=== PATIENT | female | born 1965 | race Caucasian/White ===

== ENCOUNTER 2019-12-07 05:24 | Emergency (ER) | payer BC, SELFPAY ==
[2019-12-07 05:28] VITALS: BP 159/83; PULSE 98; RESP 16; TEMP 35.9; O2SAT 99
--- NOTE | 2019-12-07 06:07 | ED.EPISTAXIS ---
HPI - Epistaxis General Chief complaint: Epistaxis Stated complaint: nose bleed Time Seen by Provider: 12/07/19 05:38 Source: patient Mode of arrival: ambulatory Limitations: no limitations History of Present Illness HPI Narrative: Patient is a 54-year-old female who presents to the emergency department with complaint of epistaxis. Patient states she had gotten up and brush her teeth and was sitting down when she began to notice blood pouring from her nose. Patient states initially she noticed blood from the left naris and then subsequently the right naris as well. Patient denies any trauma or injury. She denies any use of blood thinners. Patient had not noticed any nasal symptoms recently. complaint: epistaxis Location: bilateral nostril (Predominantly left) Onset (ago): minute(s) Duration: constant Related Data Allergies Allergy/AdvReac Type Severity Reaction Status Date / Time No Known Allergies Allergy Unverified 01/27/12 09:14 Review of Systems Review of Systems: All systems reviewed & are unremarkable except as noted in HPI and below PMFSH Past Medical History Medical History (Updated 12/07/19 @ 06:57 by Mily Templeton MD) Hyperlipidemia Surgical History Surgical History (Updated 12/07/19 @ 06:09 by Mily Templeton MD) History of bilateral breast reduction surgery Social History Social History (Updated 12/07/19 @ 06:10 by Mily Templeton MD) Smoking status: Never smoker Exam Const: General: cooperative, no acute distress and alert Nutritional Appearance: well nourished Orientation/consciousness: patient oriented x3 Limitations: no limitations HENMT: General nose exam: Epistaxis present Mouth: Yes lip normal and Yes moist mucous membranes Resp: Effort & Inspection: normal respiratory effort Auscultation: clear to auscultation bilaterally Cardio: Rate: regular rate Rhythm: regular rhythm GI: GI Palp: Yes Soft to palpation Auscultation: normal bowel sounds Skin: General skin exam: normal color and no rashes or lesions noted Neuro: General: patient oriented x3 Cognition (Neuro): normal cognition Speech: normal speech Extrem: General: normal to inspection, full ROM and no clubbing, cyanosis or edema Psych: Mental Status: mental status grossly normal Affect: normal affect Attitude: cooperative Course Course Emergency Course: Patient presents with spontaneous epistaxis. Patient nose packed with rapid Rhino with achievement of control of epistaxis. Patient will be given referral to ENT for follow-up care. Advised to return to the ED if she has recurrent heavy bleeding. Patient counseled she may use slightly while rapid Rhino is in place. Vital Signs Vital signs: Vital Signs Temperature 96.6 F L 12/07/19 05:28 Pulse Rate 98 12/07/19 05:28 Respiratory Rate 16 12/07/19 05:28 Blood Pressure 159/83 H 12/07/19 05:28 Pulse Oximetry 99 12/07/19 05:28 Temperature 96.6 F L 12/07/19 05:28 Pulse Rate 98 12/07/19 05:28 Respiratory Rate 16 12/07/19 05:28 Blood Pressure 159/83 H 12/07/19 05:28 Pulse Oximetry 99 12/07/19 05:28 Procedures Epistaxis Control bilateral: Epistaxis Control Date: 12/07/19 Epistaxis Control Time: 05:55 Nose Prepped With: oxymetazoline (Soaked cotton balls applied to both nares) Epistaxis Control Narrative: Both nares packed with Afrin soaked cotton balls and nasal clamp applied. When removed, no bleeding from right, but significant bleeding from left. left: Epistaxis Control Date: 12/07/19 Epistaxis Control Time: 06:30 Nose Prepped With: oxymetazoline Direct Inspection: unable to visualize Cautery Used: none Device Inserted: hemostatic balloon (7.5 cm rapid Rhino) Patient Tolerated Procedure: no complications Complications: pain Epistaxis Control Narrative: On reevaluation at 0650, patient states she is not feeling any significant bl
[2019-12-07 07:45] VITALS: BP 155/87; PULSE 74; RESP 15; O2SAT 100
[2019-12-07 07:59] VITALS: BP 133/78; PULSE 69; RESP 16; O2SAT 100
== END 2019-12-07 08:01 | disposition home or self-care (01) ==
PROVIDERS: Emergency Provider Emergency Medicine
DX: R04.0 Epistaxis (principal); E78.5 Hyperlipidemia, unspecified
CPT/HCPCS: 30905; 99282; A9270

== ENCOUNTER 2024-04-19 18:13 | Emergency (ER) | payer OTHER, SELFPAY ==
--- NOTE | ~2024-04-19 | XR_ITS ---
XR foot RT min 3V Ordering provider: Solange Woods APRN History: . right pain and swelling after fall . Comparison: None. FINDINGS: BONES: Fracture of the distal metaphysis of the second, third and fourth metatarsal bones. No other f ractures seen. JOINT SPACES: Normal. No tarsal coalition. SOFT TISSUES: Normal. IMPRESSION: Fracture in the distal metaphysis of the second, third and fourth metatarsal bones. Mild displacement is seen.. Reviewed, dictated and finalized at location A. IMPRESSION: Fracture in the distal metaphysis of the second, third and fourth metatarsal twan deisy. Mild displacement is seen..
[2024-04-19 18:23] VITALS: BP 154/70; PULSE 72; RESP 18; TEMP 36.8; O2SAT 100
[2024-04-19 18:24] VITALS: BP 154/70; PULSE 72; RESP 18; TEMP 36.8; O2SAT 100
--- NOTE | 2024-04-19 18:33 | ED.EXTPRO ---
HPI - Extremity Problem General Chief complaint: Extremity Problem,Nontraumatic Stated complaint: RT Foot Pain Time Seen by Provider: 04/19/24 18:14 Source: patient Mode of arrival: ambulatory Limitations: no limitations History of Present Illness HPI Narrative: 59-year-old female presents to [facility] with complaints of pain to the dorsal aspect of her right foot and pain to her right 1st and 2nd toe since falling prior to arrival. Patient reports that she was at a local store when she tripped over a parking block causing pain to her right foot. Patient reports abrasion to the medial aspect of her right foot. Patient denies hitting her head, loss of conscious, headache, dizziness, blurred vision, nausea, vomiting or numbness or tingling. MD Complaint: extremity pain Onset (ago): hour(s) (1) Relieving factors: rest Exacerbating factors: range of motion, weight bearing, walking and palpation Associated symptoms: denies other symptoms Related Data Home Medications Medication Instructions Recorded Confirmed atorvastatin 10 mg tablet mg 04/19/24 Allergies Allergy/AdvReac Type Severity Reaction Status Date / Time No Known Allergies Allergy Verified 04/19/24 18:24 Review of Systems Constitutional: Constitutional: Denies chills, Denies fatigue, Denies fever(s) and Denies weakness ENT: Denies dizziness, Denies epistaxis and Denies nasal congestion Cardiovascular: Cardiovascular: Denies chest pain Respiratory: Respiratory: Denies cough, Denies dyspnea and Denies wheezing Gastrointestinal: Gastrointestinal: Denies diarrhea, Denies nausea and Denies vomiting Musculoskeletal: Musculoskeletal: Reports arthralgias and Denies joint swelling Comments: Pain to right foot Neurologic: Denies dizziness, Denies syncope, Denies headache(s), Denies numbness and Denies weakness [facility] Past Medical History Medical History Hyperlipidemia Surgical History Surgical History History of bilateral breast reduction surgery Social History Social History Smoking status: Never smoker Comments At time of signature, I agree with nursing past medical, surgical, social and family history. There is no relevant family history pertinent to the presenting complaint. Exam Const: General: healthy appearing and no acute distress Nutritional Appearance: well nourished Orientation/consciousness: patient oriented x3 Limitations: no limitations HENMT: Head: normal to inspection Eyes: Conjunctivae: conjunctivae normal Neck: Neck: normal visual inspection Resp: Effort & Inspection: normal respiratory effort and not labored Auscultation: clear to auscultation bilaterally, no crackles, no rales, no rhonchi and no wheezes Cardio: Rate: regular rate Rhythm: regular rhythm Heart sounds: no murmurs Skin: General skin exam: normal color Other: 0.5 cm abrasion noted to medial aspect of right foot. There is no active bleeding or drainage noted. Neuro: General: patient oriented x3 Speech: normal speech Extrem: Other: Very small abrasion noted to medial aspect left foot. There is no obvious swelling or bruising noted. Pain noted to dorsal aspect of right foot and pain to right 1st and 2nd toes upon palpation and range of motion. Pulses are within normal limits. Psych: Affect: normal affect Attitude: cooperative Course Course Level of Care: Express Care Visit Vital Signs Vital signs: Vital Signs Temperature 36.8 C 04/19/24 18:23 Pulse Rate 72 04/19/24 18:23 Respiratory Rate 18 04/19/24 18:23 Blood Pressure 154/70 H 04/19/24 18:23 Pulse Oximetry 100 04/19/24 18:23 Oxygen Delivery Room Air 04/19/24 18:23 Temperature 36.8 C 04/19/24 18:24 Pulse Rate 72 04/19/24 18:24 Respiratory Rate 18 04/19/24 18:24 Blood Pressur
== END 2024-04-19 19:30 | disposition home or self-care (01) ==
PROVIDERS: Emergency Provider Nurse Practitioner Family; PCP Family Medicine
DX: S92.324A Nondisplaced fracture of second metatarsal bone, right foot, initial encounter for closed fracture (principal); S92.334A Nondisplaced fracture of third metatarsal bone, right foot, initial encounter for closed fracture; S92.344A Nondisplaced fracture of fourth metatarsal bone, right foot, initial encounter for closed fracture; W22.09XA Striking against other stationary object, initial encounter; E78.5 Hyperlipidemia, unspecified
CPT/HCPCS: 29515; 73630; 99214; G0463